=== PATIENT | female | born 1990 | race Native Hawaiian/Other Pacific Islander ===

== ENCOUNTER 2018-12-18 20:48 | Emergency (ER) | payer OTHER ==
[~2018-12-18] VITALS: Ht 167.6 cm; Wt 142.9 kg
[2018-12-18 21:57] LABS: PLATELET COUNT 300 K/uL (152-353)
[2018-12-18 22:13] LABS: POTASSIUM 3.8 mmol/L (3.6-5.2)
[2018-12-19 01:29] VITALS: BP 141/93; TEMP 98.3
== END 2018-12-19 01:31 | disposition home or self-care (01) ==
LOC: ED 20:48
PROVIDERS: Family Medicine
DX: R10.84 Generalized abdominal pain (principal); K92.2 Gastrointestinal hemorrhage, unspecified
CPT/HCPCS: 36415; 80053; 81000; 81025; 82272; 85027; 99284; Q9963

== ENCOUNTER 2019-02-22 10:32 | Outpatient (CLI) | payer OTHER | END 2019-02-22 23:49 | disposition home or self-care (01) | LOC: US 10:32 | DX: R10.11 Right upper quadrant pain (principal) ==

== ENCOUNTER 2019-04-04 15:45 | Outpatient (CLI) | payer OTHER | END 2019-04-04 23:59 | disposition home or self-care (01) | LOC: LABW 15:45 | DX: N91.2 Amenorrhea, unspecified (principal) | CPT/HCPCS: 36415; 84702 ==

== ENCOUNTER 2019-04-22 18:39 | Emergency (ER) | payer OTHER ==
[~2019-04-22] VITALS: Ht 167.6 cm; Wt 132.9 kg
[2019-04-22 19:48] LABS: PLATELET COUNT 213 K/uL (152-353)
[2019-04-22 19:55] LABS: POTASSIUM 3.2 mmol/L (3.6-5.2); SODIUM 136 mmol/L (136-145)
[2019-04-22 21:00] VITALS: BP 138/72; TEMP 98.3
== END 2019-04-22 21:00 | disposition home or self-care (01) ==
LOC: ED 18:39
PROVIDERS: Emergency Medicine
DX: K52.89 Other specified noninfective gastroenteritis and colitis (principal); K85.80 Other acute pancreatitis without necrosis or infection
CPT/HCPCS: 36415; 80053; 82150; 83690; 84484; 85027; 96360; 96376; 99284; J2405

== ENCOUNTER 2019-12-15 09:18 | Outpatient (CLI) | payer OTHER | END 2019-12-15 22:05 | disposition home or self-care (01) | LOC: US 09:18 | DX: R07.9 Chest pain, unspecified (principal); R10.13 Epigastric pain ==

== ENCOUNTER 2019-12-25 14:17 | Outpatient (CLI) | payer OTHER | END 2019-12-25 19:43 | disposition home or self-care (01) | LOC: RAD 14:17 | DX: M25.561 Pain in right knee (principal) ==

== ENCOUNTER 2020-04-12 11:35 | Outpatient (CLI) | payer OTHER | END 2020-04-12 23:14 | disposition home or self-care (01) | LOC: RAD 11:35 | DX: M25.532 Pain in left wrist (principal); M79.642 Pain in left hand; M79.602 Pain in left arm ==

== ENCOUNTER 2020-07-09 10:50 | Outpatient (CLI) | payer OTHER | END 2020-07-09 22:27 | disposition home or self-care (01) | LOC: LAB 10:50 | PROVIDERS: ATTEND Family Medicine | DX: H92.09 Otalgia, unspecified ear (principal); R50.9 Fever, unspecified; R11.10 Vomiting, unspecified; G47.00 Insomnia, unspecified; Z11.59 Encounter for screening for other viral diseases | CPT/HCPCS: 87635; G2023; U0003 ==

== ENCOUNTER 2020-08-08 09:31 | Outpatient (CLI) | payer OTHER | END 2020-08-08 18:59 | disposition home or self-care (01) | LOC: LAB 09:31 | PROVIDERS: ATTEND Family Medicine | DX: Z20.828 Contact with and (suspected) exposure to other viral communicable diseases (principal) | CPT/HCPCS: 87635; G2023; U0003 ==

== ENCOUNTER 2020-09-03 19:40 | Emergency (ER) | payer OTHER ==
[~2020-09-03] VITALS: Ht 167.6 cm; Wt 104.3 kg
[2020-09-03 20:58] LABS: PLATELET COUNT 256 K/uL (152-353)
[2020-09-03 21:02] LABS: POTASSIUM 3.6 mmol/L (3.6-5.2); SODIUM 138 mmol/L (136-145)
[2020-09-03 22:35] VITALS: BP 121/86; TEMP 97.9
== END 2020-09-03 22:35 | disposition home or self-care (01) ==
LOC: ED 19:49
PROVIDERS: Emergency Medicine Emergency Medical Services
DX: M94.0 Chondrocostal junction syndrome [Tietze] (principal); U07.1 COVID-19; X50.9XXA Other and unspecified overexertion or strenuous movements or postures, initial encounter; Y92.89 Other specified places as the place of occurrence of the external cause
CPT/HCPCS: 36415; 80053; 84484; 85007; 85027; 87635; 93005; 96374; 99284; J1885; U0003

== ENCOUNTER 2020-09-27 10:51 | Outpatient (CLI) | payer OTHER | END 2020-09-27 19:35 | disposition home or self-care (01) | LOC: LAB 10:51 | PROVIDERS: ATTEND Family Medicine | DX: R19.7 Diarrhea, unspecified (principal) | CPT/HCPCS: 82272; 87015; 87045; 87324; 87328; 87329; 87425; 87449; 87899 ==

== ENCOUNTER 2020-10-01 13:01 | Emergency (ER) | payer OTHER ==
[~2020-10-01] VITALS: Ht 167.6 cm; Wt 104.3 kg
[2020-10-01 13:10] VITALS: TEMP 97.8
[2020-10-01 14:18] VITALS: BP 166/71
== END 2020-10-01 14:31 | disposition home or self-care (01) ==
LOC: ED 13:01
PROC: 2W3RX1Z Immobilization of Left Lower Leg using Splint (ICD-10-PCS; principal; 2020-10-01)
DX: S93.492A Sprain of other ligament of left ankle, initial encounter (principal); W17.2XXA Fall into hole, initial encounter; Y92.89 Other specified places as the place of occurrence of the external cause
CPT/HCPCS: 96372; 99283; J1885

== ENCOUNTER 2020-10-07 17:00 | Outpatient (CLI) | payer OTHER | END 2020-10-07 23:18 | disposition home or self-care (01) | LOC: RAD 17:00 | PROVIDERS: ATTEND Family Medicine | DX: M79.672 Pain in left foot (principal); M25.572 Pain in left ankle and joints of left foot ==

== ENCOUNTER 2021-07-06 09:37 | Emergency (ER) | payer OTHER ==
[~2021-07-06] VITALS: Ht 167.6 cm; Wt 104.3 kg
[2021-07-06 12:32] VITALS: BP 150/88; TEMP 99.4
== END 2021-07-06 12:33 | disposition home or self-care (01) ==
LOC: ED 09:37
DX: J10.1 Influenza due to other identified influenza virus with other respiratory manifestations (principal); Z20.822 Contact with and (suspected) exposure to COVID-19
CPT/HCPCS: 87502; 87635; 87651; 99283; U0003

== ENCOUNTER 2021-10-28 21:31 | Emergency (ER) | payer OTHER ==
[~2021-10-28] VITALS: Ht 167.6 cm; Wt 145.6 kg
[2021-10-28 22:13] LABS: PLATELET COUNT 244 K/uL (152-353)
[2021-10-28 22:27] LABS: POTASSIUM 3.9 mmol/L (3.6-5.2); SODIUM 138 mmol/L (136-145)
[2021-10-28 22:33] LABS: PARTIAL THROMBOPLASTIN TIME 27.3 SECONDS (24.5-33.6)
[2021-10-28 22:55] VITALS: BP 135/81; TEMP 98
== END 2021-10-28 22:55 | disposition home or self-care (01) ==
LOC: ED 21:31
PROVIDERS: Hospitalist
DX: R07.89 Other chest pain (principal); R09.1 Pleurisy
CPT/HCPCS: 36415; 80053; 82550; 83880; 84484; 85027; 85379; 85610; 85730; 93005; 96374; 96375; 99283; 99284; J1885; J2405

== ENCOUNTER 2023-04-16 16:08 | Emergency (ER) | payer OTHER ==
[~2023-04-16] VITALS: Ht 167.6 cm; Wt 131.5 kg
[2023-04-16 16:20] VITALS: BP 112/70; TEMP 98.7
[2023-04-16 16:49] LABS: PLATELET COUNT 272 K/uL (152-353)
[2023-04-16 16:53] LABS: POTASSIUM 3.8 mmol/L (3.6-5.2)
== END 2023-04-16 20:10 | disposition home or self-care (01) ==
LOC: ED 16:08
PROVIDERS: Family Medicine
DX: A08.4 Viral intestinal infection, unspecified (principal); I10 Essential (primary) hypertension
CPT/HCPCS: 80053; 81002; 81025; 85027; 99283; J2405